=== PATIENT | female | born 1965 | race Caucasian/White ===

== ENCOUNTER 2019-10-08 22:29 | Inpatient (IN) | payer OTHER ==
[~2019-10-08] VITALS: Ht 154.9 cm; Wt 65.3 kg
--- NOTE | 2019-10-08 22:30 | NUR ---
PT BIBRA C/O FEVER AND SOB S/P COVID (+) EXPOSURE. PER RA, PT'S ROOMATE WAS TESTED POTISIVE LAST WEEK. UPON ARRIVAL PT SAT 76 ON ROOM AIR. PLACED ON 4L NC SAT 83%. RT AT BEDSIDE PLACED 15L NON REBREATHER ON THE PATIENT, SAT 88%. PT AAOX4.
--- NOTE | 2019-10-08 22:30 | NUR ---
PRESSURE ULACER ON L FOOT NOTED.
[2019-10-08 22:55] LABS: BASOPHILS # (AUTO) 0.1 /CMM (0.0-0.2); BASOPHILS % (AUTO) 0.5 % (0.0-2.0); EOSINOPHILS % (AUTO) 0.2 % (0.0-6.0); HEMATOCRIT 30 % (33-45); HEMOGLOBIN 9.3 g/dL (11.5-14.8); LYMPHOCYTES # (AUTO) 1.2 /CMM (0.8-4.8); LYMPHOCYTES % (AUTO) 11.6 % (20.0-44.0); MEAN CORPUSCULAR HGB CONC 31 g/dl (31.0-36.0); MEAN CORPUSCULAR VOLUME 88 fL (82-100); MONOCYTES # (AUTO) 0.6 /CMM (0.1-1.30); MONOCYTES % (AUTO) 5.4 % (2.0-12.0); NEUTROPHILS # (AUTO) 8.7 /CMM (1.8-8.9); NEUTROPHILS % (AUTO) 82.3 % (43.0-81.0); PLATELET COUNT (AUTO) 466 /CMM (150-450); RED BLOOD CELL COUNT(AUTO) 3.41 MIL/uL (4.0-5.2); WHITE BLOOD COUNT (AUTO) 10.5 K/uL (4.3-11.0)
--- NOTE | 2019-10-08 22:55 | NUR ---
RT AT BEDSIDE FOR ABG
[2019-10-08 22:59] LABS: ABG BASE EXCESS -3.1 mmol/L; ABG OXYGEN SATURATION 77.4 % (92.0-98.5); ABG PCO2 31.4 mmHg (35.0-45.0); ABG PH 7.433 (7.350-7.450); ABG PO2 43.2 mmHg (75.0-100.0); AaDO2 148.2 mmHg; COHb 0.9 % (0.5-1.5); MetHb 0.3 % (0.0-1.5); O2Hb 76.5 % (94.0-97.0); SITE, ABG Left Radial; VENT MODE, BG 3 LNC
[2019-10-08 23:04] LABS: CALCIUM, SERUM 8.4 mg/dL (8.5-10.1); CARBON DIOXIDE 25 mmol/L (21-32); CHLORIDE 100 mmol/L (98-107); CREATININE 0.7 mg/dL (0.6-1.3); GLUCOSE 162 mg/dL (74-106); POTASSIUM 4.1 mmol/L (3.5-5.1); SODIUM SERUM 136 mmol/L (136-145); UREA NITROGEN, BLOOD 13 mg/dL (7-18)
--- NOTE | 2019-10-08 23:10 | NUR ---
XRAY AT BEDSIDE
--- NOTE | 2019-10-08 23:10 | NUR ---
COVID AND INF SENT TO LAB
--- NOTE | 2019-10-08 23:11 | NUR ---
PT PLACED ON 15L NON ERIC SAT 84%
[2019-10-08 23:17] LABS: ALANINE AMINOTRANSFERASE 25 U/L (12-78); ALKALINE PHOSPHATASE 92 U/L (46-116); ASPARTATE AMINOTRANSFERASE 53 U/L (15-37); B-TYPE NATRIURETIC PEPTIDE 1538 PG/ML (0-125); BILIRUBIN,DIRECT 0.1 mg/dL (0.0-0.2); BILIRUBIN,TOTAL 0.4 mg/dL (0.2-1.0); TOTAL PROTEIN, SERUM 7.2 g/dL (6.4-8.2)
--- NOTE | 2019-10-08 23:22 | NUR ---
CALLED [facility], AWAITING MD CALL BACK
[2019-10-09] VITALS (23 sets, daily range): BP systolic 91–134; BP diastolic 50–82
--- NOTE | 2019-10-09 00:01 | NUR ---
FR flores catheter inserted per sterile protocal. Immediate output 50 ML of urine.
--- NOTE | 2019-10-09 00:07 | NUR ---
PER PT. UNABLE TO RECAL MEDS.
[2019-10-09] MEDS ORDERED: PROPOFOL 100 ML ONE (00:27)
--- NOTE | 2019-10-09 00:55 | NUR ---
PT INTUBATED PER MD. TV 500, FIO2 18, O2 100, PEEP 8
--- NOTE | 2019-10-09 00:57 | NUR ---
PT WAS SUCCESSFULLY INTUBATED AT THE BED SIDE BY DR. DONNELLY
--- NOTE | 2019-10-09 00:57 | NUR ---
SIZE:7.5. 23 AT THE LIP.
--- NOTE | 2019-10-09 01:15 | NUR ---
RT @0057 pt was intubated in ER due to desaturation post abg and placed on nrb. pt was orally intubated with ETT 7.5 secured at 23@lip. placed on vent with settings of AC 18 500 100% +8.
[2019-10-09 01:25] LABS: APPEARANCE,URINE Clear (CLEAR); BILIRUBIN,URINE SMALL (NEGATIVE); BLOOD, URINE Trace-intact Ery/uL (NEGATIVE); COLOR,URINE Orange (YELLOW); KETONES,URINE 40 (NEGATIVE); LEUKOCYTE ESTERASE ,URINE Negative (NEGATIVE); NITRITE, URINE Negative (NEGATIVE); PROTEIN,URINE 30 mg/dl (NEGATIVE); UGLUCOSE Negative (NEGATIVE)
[2019-10-09] MEDS ORDERED: VANCOMYCIN 1 GM VIAL ONE (01:29)
[2019-10-09] MEDS ORDERED: PIPERACILLIN /TAZOBACTAM 3.375 G VIAL IV ONE (01:29)
[2019-10-09] MEDS ORDERED: PIPERACILLIN /TAZOBACTAM 3.375 G in IV D5W 50 ML IV ONE (01:30)
[2019-10-09] MEDS ORDERED: ONDANSETRON HCL/PF 4 MG/2 ML VIAL IVP PRN (01:30)
[2019-10-09] MEDS ORDERED: ONDANSETRON 4 MG TAB.RAPDIS SL PRN (01:30)
[2019-10-09] MEDS ORDERED: IV NS 0.9% 1,000 ML BAG IV ONE (01:30)
[2019-10-09] MEDS ORDERED: VANCOMYCIN 1 GM in IV D5W 250 ML IV ONE (01:30)
[2019-10-09] MEDS ORDERED: ACETAMINOPHEN 325 MG TABLET PO PRN (01:30)
[2019-10-09 01:36] LABS: BACTERIA,URINE Few /HPF (None Seen); SQUAMOUS EPITHELIAL CELL,UR Few /HPF (None Seen)
[2019-10-09] MEDS ORDERED: MIDAZOLAM 50 MG/10 ML VIAL ONE (01:51)
[2019-10-09] MEDS ORDERED: MIDAZOLAM HCL 5 MG/5ML VIAL ONE (01:51)
--- NOTE | 2019-10-09 01:56 | NUR ---
RT @0140 pt was reintubated post self extubation. ett 7.5, 23@lip. same vent settings.
[2019-10-09] MEDS ORDERED: ALBUTEROL SULFATE 8 GM HFA.AER.AD IH PRN (02:00)
--- NOTE | 2019-10-09 02:42 | NUR ---
REPORT GIVEN TO DARIUSZ STEPHENS FOR ISAIAS
[2019-10-09 03:04] LABS: ABG BASE EXCESS -4.4 mmol/L; ABG OXYGEN SATURATION 99.5 % (92.0-98.5); ABG PCO2 24.6 mmHg (35.0-45.0); ABG PH 7.483 (7.350-7.450); ABG PO2 349.4 mmHg (75.0-100.0); COHb 0.6 % (0.5-1.5); MetHb 0.2 % (0.0-1.5); O2Hb 98.7 % (94.0-97.0); SITE, ABG Left Radial; VENT MODE, BG AC 18 500 100% +8
[2019-10-09] MEDS: PROPOFOL 100 ML IV PRN ×5 (03:15→19:36)
--- NOTE | 2019-10-09 03:15 | NUR ---
RT pull ett back 3 cm to 20cm @lip per (everardo)
--- NOTE | 2019-10-09 03:26 | NUR ---
PT TRANSFERED PER ACLS PROTOCOL
[2019-10-09] MEDS ORDERED: MIDAZOLAM HCL 5 MG/5ML VIAL IV ONE (03:30)
--- NOTE | 2019-10-09 03:30 | NUR ---
COMPUTER SECURITY COORDINATOR: RECEIVED PT S/P INTUBATION FOR RESPIRATORY FAILURE AND R/O COVID. VENT SETTINGS ORDERED WT 02 SAT 96% AND ABOVE. SEDATED ON DIPRIVAN AT 30MCG/KG/MIN, OEPNS EYES AND WITHDRAWS TO PAIN STIMULI. SR ON MONITOR. FEBRILE AT 101.5. COLD BED BATH GIVEN AND CONTINUE COOLING MEASURES. BILAT. SOFT WRIST RESTRAINTS IN PLACE TO PREVENT SELF EXTUBATION. SKIN AND CIRCULATION WNL. RT. NGT IN PLACE. F/C PATENT AND INTACT DRAINING CLEAR YELLOW URINE TO GRAVITY. SKIN ASSESSMENT DONE WT MULT. SKIN ISSUES. PICS TAKEN. HOB AT 35 DEGREES. BED IN LOWEST POSITION AND LOCKED, SIDE RAILS UP X2, BED ALARM ACTIVATED. WILL CONTINUE TO MONITOR.
[2019-10-09] MEDS: ACETAMINOPHEN 650 MG/SUPP.RECT RC PRN ×2 (04:24→16:25)
--- NOTE | 2019-10-09 05:30 | NUR ---
PROJECT MANAGEMENT DIRECTOR: REASSESSMENT DONE AFTER GIVEN TYLENOL FOR FEVER. JZPX=[phone] AT THIS TIME. WILL CONTINUE TO MONITOR.
[2019-10-09 05:31] LABS: FERRITIN 131 ng/mL (8-388)
[2019-10-09 05:32] LABS: C-REACTIVE PROTEIN 59.7 mg/dL (0.0-0.9)
--- NOTE | 2019-10-09 07:00 | NUR ---
RAMPMAN: PT PULLED OUT NGT, RESTLESS AND TRYING TO PULL OTHER TUBINGS. DIPRIVAN INCREASED TO 40MCG/KG/MIN AND INCREASED FI02 TO 100% FOR DESATURATION. WILL ENDORSE TO DAY SHIFT FOR CONTINUITY OF CARE.
--- NOTE | 2019-10-09 07:27 | NUR ---
FIO2 incresed to 100% due to 88% saturation RN aware on vent changes Addendum: 10/09/19 at 0727 by SCAR OGDEN RT Amended: Links added.
[2019-10-09 07:47] LABS: BASOPHILS % (AUTO) 0.4 % (0.0-2.0); EOSINOPHILS % (AUTO) 0.1 % (0.0-6.0); HEMATOCRIT 29 % (33-45); HEMOGLOBIN 8.8 g/dL (11.5-14.8); LYMPHOCYTES % (AUTO) 8.8 % (20.0-44.0); MEAN CORPUSCULAR HGB CONC 31 g/dl (31.0-36.0); MEAN CORPUSCULAR VOLUME 88 fL (82-100); MONOCYTES # (AUTO) 0.5 /CMM (0.1-1.30); MONOCYTES % (AUTO) 4.5 % (2.0-12.0); NEUTROPHILS # (AUTO) 9.5 /CMM (1.8-8.9); NEUTROPHILS % (AUTO) 86.2 % (43.0-81.0); PLATELET COUNT (AUTO) 453 /CMM (150-450); RED BLOOD CELL COUNT(AUTO) 3.25 MIL/uL (4.0-5.2)
[2019-10-09] MEDS ORDERED: FEE EMEERGENCY 1 MIN EA MC ONE (08:29)
[2019-10-09] MEDS ORDERED: ETOMIDATE 2 MG/ML VIAL IV ONE (08:29)
[2019-10-09] MEDS ORDERED: SUCCINYLCHOLINE CHLORIDE 20 MG/ML VIAL IV ONE (08:29)
[2019-10-09] MEDS: IV NS 0.9% 1,000 ML IV PRN ×3 (08:31→18:33)
[2019-10-09] MEDS: PANTOPRAZOLE 40 MG VIAL IV SCH (08:59)
[2019-10-09] MEDS ORDERED: AZITHROMYCIN 500 MG in IV D5W 250 ML IV SCH (09:00)
--- NOTE | 2019-10-09 09:20 | NUR ---
WOUND CARE CONSULT: REVIEWED CHART INCLUDING NURSING DOCUMENTATION AND ADMISSION PHOTOS WHICH SHOW FOOT WOUNDS AND SACRAL SCARRING, PRESENT ON ADMISSION. RECOMMENDATIONS MADE FOR SKIN PROTECTION. DISCUSSED WITH NURSING STAFF. PT ON JOLIE ISOFLEX LOW AIRLOSS BED. RECOMMEND DPM CONSULT. DR REESE NOTIFIED. IN AGREEMENT WITH PLAN OF CARE.
[2019-10-09 09:23] LABS: ABG BASE EXCESS -5.4 mmol/L; ABG OXYGEN SATURATION 99.7 % (92.0-98.5); ABG PCO2 23.8 mmHg (35.0-45.0); ABG PH 7.471 (7.350-7.450); ABG PO2 284.2 mmHg (75.0-100.0); COHb 0.6 % (0.5-1.5); MetHb 0.3 % (0.0-1.5); O2Hb 98.8 % (94.0-97.0); SITE, ABG Right Radial; VENT MODE, BG AC 14 500 100% +8
--- NOTE | 2019-10-09 09:38 | NUR ---
ET TUBE ADJUSTED FROM 20CM TO 18CM Addendum: 10/09/19 at 0938 by SCAR OGDEN RT Amended: Links added.
[2019-10-09 09:42] LABS: CALCIUM, SERUM 7.9 mg/dL (8.5-10.1); CARBON DIOXIDE 18 mmol/L (21-32); CHLORIDE 102 mmol/L (98-107); CREATININE 0.5 mg/dL (0.6-1.3); GLUCOSE 200 mg/dL (74-106); POTASSIUM 4.3 mmol/L (3.5-5.1); SODIUM SERUM 137 mmol/L (136-145); UREA NITROGEN, BLOOD 11 mg/dL (7-18)
[2019-10-09 09:48] LABS: ALANINE AMINOTRANSFERASE 26 U/L (12-78); ALBUMIN 2.1 g/dL (3.4-5.0); ALKALINE PHOSPHATASE 97 U/L (46-116); ASPARTATE AMINOTRANSFERASE 68 U/L (15-37); BILIRUBIN,TOTAL 0.6 mg/dL (0.2-1.0); MAGNESIUM 1.9 mg/dL (1.8-2.4); PHOSPHORUS 2.6 mg/dL (2.5-4.9); TOTAL PROTEIN, SERUM 6.1 g/dL (6.4-8.2)
--- NOTE | 2019-10-09 10:01 | NUR ---
vent changes below per dr. casey: vt 450ml fio2 60% Addendum: 10/09/19 at 1001 by CHRISTIAN YAÑEZ RT Amended: Links added.
[2019-10-09] MEDS ORDERED: WARF-58 PO (10:06)
[2019-10-09] MEDS ORDERED: GABA-534 PO (10:06)
[2019-10-09] MEDS ORDERED: OMEP20CA15 PO (10:06)
[2019-10-09] MEDS ORDERED: OXYC1TAB12 PO (10:06)
[2019-10-09] MEDS ORDERED: DULO30CA52 PO (10:06)
[2019-10-09] MEDS ORDERED: METF-440 PO (10:06)
[2019-10-09 10:19] LABS: CHOLESTEROL 98 mg/dL (<200); FERRITIN 167 ng/mL (8-388); HDL CHOLESTEROL 31 mg/dL (40-60); LDL 46 mg/dL (0-99); THYROID STIMULATING HORMONE 0.902 uIU/mL (0.358-3.74); TRIGLYCERIDES 136 mg/dL (30-150)
[2019-10-09] MEDS: HYDROXYCHLOROQUINE 200 MG/8 ML SUSPENSION NG SCH ×2 (10:44→20:19)
--- NOTE | 2019-10-09 10:49 | NUR ---
SKIVER SOCK LININGS. ACCORDING TO THE MD DAVIES ETT 2CM PULLED OUT NOW LIP 18.
--- NOTE | 2019-10-09 10:51 | NUR ---
CANDY POLISHER.SISTER VICTORIA CALLED UP DATE GIVEN. ACCORDING TO THE SISTER ,SHE IS CHARMAINE COWART PT.PT HAS HISTORY OF DM.
--- NOTE | 2019-10-09 10:54 | NUR ---
OGT PLACED. WOUND DRESSING DONE. VENT SETTINGS AC 14,TV 450,FIO2 70%.PEEP OF 8. SAT 99% AT THIS TIME. PT IS SEDATED WITH DIPRIVAN 40MCG/KG/MIN, IVF NS 125ML/H. AFEBRILE. SOPHIE SOFT WRIST RESTRAINT CHECKED AND RELEASED. NO INJURY OR REDNESS NOTED.ENDORSE TO COOK HELPER VEGETABLE GIL FOR ISAIAS.
--- NOTE | 2019-10-09 12:00 | NUR ---
REPORT RECEIVED FROM JOSE LUIS CONTRERAS RN FOR ISAIAS. PT SEDATED RASS LEVEL 4 CURRENTLY, ON 50MCG PROPOFOL. NAD NOTED. TURNED AND REPOSITIONED FOR COMFORT. TOLERATING VENT AT ORDERED SETTINGS. IVF ONGOING.
[2019-10-09 12:41] LABS: IRON, SERUM 24 ug/dl (50-175)
[2019-10-09 12:53] LABS: TOTAL IRON BINDING CAPACITY 517 ug/dl (250-450)
--- NOTE | 2019-10-09 14:56 | NUR ---
DIPRIVAN DRIP RUINNING AT 50MCG/KR/MIN, INADEQUATE SEDATION, RASS SCORE 4. PT MOVING SPONTANEOUSLY IN RESTRAINTS, APPEARS UNCOMFORTABLE. OBTAINED VERBAL ORDER FROM DR DAVIES TO INCREASE DRIP NEEDED UP TO MAX 100MCG/KG/MIN.
--- NOTE | 2019-10-09 16:00 | NUR ---
PT NOTED FEBRILE. WILL ADMINISTER TYLENOL AND PT UNCOVERED FROM BLANKETS. TOLERATING VENT. SEDATION NOW RASS 3, ADEQUATELY SEDATED.
--- NOTE | 2019-10-09 17:45 | NUR ---
PT REMAINS 102.2F RECTAL, ICE PACKS APPLIED TO GROIN AND NECK.
[2019-10-09] MEDS ORDERED: CEFEPIME 1 GM in IV D5W 50 ML IV SCH (19:30)
[2019-10-09] MEDS ORDERED: FEE PK DOSING 1 MIN EA MC ONE (19:49)
--- NOTE | 2019-10-09 19:50 | NUR ---
RN CORRECTIONS NOTES, RECEIVED PT ON MECHANICAL VENTILATOR, TOLERATED VENT SETTINGS WELL WITH O2 SAT LEVEL >96% ON DIPRIVAN AT 60MCG/KG/MIN, PATIENT MOVE ARMS AT TIMES, MILD SEDATION, SR ON MONITOR WITH HR 90S AT THIS TIME, BODY TEMP 100.3, WILL PROVIDE COOLING MEASURES, ON BILATERAL SOFT WRIST RESTRAINTS IN PLACE, SKIN AND CIRCULATION WNL, NO CIRCULATION COMPROMISED, RIGHT NGT IN PLACE WELL F/C PATENCY INTACT, DRAINING CLEAR YELLOW URINE TO GRAVITY, HOB ELEVATED, BED LOCKED AND IN LOW POSITION, SIDE RAILS UP X2, BED ALARM ON, WILL CONTINUE TO MONITOR PATIENT CLOSELY.
[2019-10-09] MEDS ORDERED: AZITHROMYCIN 250 MG TABLET PO SCH (20:00)
[2019-10-09] MEDS: CEFEPIME 2 GM in IV D5W 100 ML IV SCH (20:54)
[2019-10-09] MEDS: VANCOMYCIN 1 GM in IV D5W 250 ML IV SCH (21:29)
[2019-10-10] VITALS (25 sets, daily range): BP systolic 97–145; BP diastolic 27–82
[2019-10-10] MEDS: ACETAMINOPHEN 650 MG/SUPP.RECT RC PRN
[2019-10-10] MEDS: PROPOFOL 100 ML IV PRN ×8 (00:10→23:39)
--- NOTE | 2019-10-10 01:38 | NUR ---
RT NOTE Pt rec'd orally intubated via ETT sz 7.5 secured @ 18cm at the lipline. Pt on [facility] vent on AC mode on noted settings as charted. Sx'd for thick mod amt of bloody secretions. Alarms are set and audible. Vent plugged into red outlet. Will Continue to monitor closely. Addendum: 10/10/19 at 0139 by JACQUE BAER RT Amended: Links added.
[2019-10-10] MEDS: VANCOMYCIN 1 GM in IV D5W 250 ML IV SCH ×3 (04:22→21:00)
[2019-10-10 05:28] LABS: BASOPHILS % (AUTO) 0.2 % (0.0-2.0); EOSINOPHILS % (AUTO) 0.6 % (0.0-6.0); HEMATOCRIT 26 % (33-45); HEMOGLOBIN 8.4 g/dL (11.5-14.8); LYMPHOCYTES % (AUTO) 13.4 % (20.0-44.0); MEAN CORPUSCULAR HGB CONC 33 g/dl (31.0-36.0); MEAN CORPUSCULAR VOLUME 88 fL (82-100); MONOCYTES # (AUTO) 0.5 /CMM (0.1-1.30); MONOCYTES % (AUTO) 6.9 % (2.0-12.0); NEUTROPHILS % (AUTO) 78.9 % (43.0-81.0); PLATELET COUNT (AUTO) 244 /CMM (150-450); RED BLOOD CELL COUNT(AUTO) 2.95 MIL/uL (4.0-5.2); WHITE BLOOD COUNT (AUTO) 7.6 K/uL (4.3-11.0)
[2019-10-10] MEDS: IV NS 0.9% 1,000 ML IV PRN (05:46)
[2019-10-10 05:47] LABS: FERRITIN 112 ng/mL (8-388)
[2019-10-10 05:59] LABS: ALANINE AMINOTRANSFERASE 19 U/L (12-78); ALBUMIN 1.6 g/dL (3.4-5.0); ALKALINE PHOSPHATASE 94 U/L (46-116); ASPARTATE AMINOTRANSFERASE 47 U/L (15-37); BILIRUBIN,TOTAL 0.4 mg/dL (0.2-1.0); CALCIUM, SERUM 7.7 mg/dL (8.5-10.1); CARBON DIOXIDE 21 mmol/L (21-32); CREATININE 0.5 mg/dL (0.6-1.3); GLUCOSE 191 mg/dL (74-106); MAGNESIUM 1.8 mg/dL (1.8-2.4); PHOSPHORUS 2.1 mg/dL (2.5-4.9); TOTAL PROTEIN, SERUM 6.2 g/dL (6.4-8.2); UREA NITROGEN, BLOOD 6 mg/dL (7-18)
[2019-10-10 06:02] LABS: CHLORIDE 112 mmol/L (98-107); SODIUM SERUM 144 mmol/L (136-145)
[2019-10-10 06:15] LABS: POTASSIUM 2.8 mmol/L (3.5-5.1)
--- NOTE | 2019-10-10 06:26 | NUR ---
RN NOTES, CRITICAL LAB REPORTED FROM LAB FOR POTASSIUM 2.8, INFORMED CONSTANCE JACKMAN NP AND RECEIVED A NEW ORDER FOR NS 40MEQ POTASSIUM AT 100ML/HR, NOTED AND CARRIED OUT.
--- NOTE | 2019-10-10 06:57 | NUR ---
ROPE MACHINE SETTER NOTES, PATIENT REMAIN ON MECHANICAL VENTILATOR, WITH VENT SETTING CHANGED TO FIO2 50%, CONT WITH AC 14, TV450, PEEP 8, TOLERATED VENT SETTINGS WELL WITH O2 SAT LEVEL >100% AT THIS ITME, EPISODE OF FEVER LAST NIGHT, TYLENOL SUPP AND COOLING MEASURES PROVIDED, DIPRIVAN INCREASED TO 70MCG/KG/MIN, DUE TO PATIENT AGITATED, RIGHT NOW CONT SR ON MONITOR WITH HR 90S, BILATERAL SOFT WRIST RESTRAINTS IN PLACE, SKIN AND CIRCULATION CHECKS PROTOCOL, NO CIRCULATION COMPROMISED, RIGHT NGT IN PLACE WELL F/C PATENCY INTACT, DRAINING CLEAR YELLOW URINE TO GRAVITY, HOB ELEVATED, WITH CRITICAL LAB VALUE FOR POTASSIUM 2.8 AND NEW ORDER TO SWITCH IVF TO NS WITH 40MEQ KCL AT 100ML/HR, ORDER NOTED CARRIED OUT AND AWAITING FOR PHARMACY TO VERIFY, WILL ENDORSE CONTINUITY OF CARE TO ONCOMING NURSE, BED LOCKED AND IN LOW POSITION, SIDE RAILS UP X2, BED ALARM ON.
[2019-10-10] MEDS ORDERED: Potassium Chloride 40 MEQ in IV NS 0.9% 1,000 ML IV PRN (07:00)
--- NOTE | 2019-10-10 07:40 | NUR ---
DIRECTOR OF MATH OPENING NOTE Received patient sedated in bed intubated with no signs of distress. Vent settings as follows AC 14 TV 450 fiO2 50% Peep 8. Tele reading ST 110 bpm. Patient on FC draining cloudy to clear yellow urine. Noted with L foot dressing. Patient has clamped R nare NG tube. Has L hand and LAC peripheral IV. Skin cool to touch. Cooling measures in place due to previous fever. peripheral IV. Safety measure reinforced. Call light within reach. Bed rails x2. Bed on locked and lowest position. Will cont to monitor.
[2019-10-10 07:55] LABS: ABG PCO2 27.6 mmHg (35.0-45.0); ABG PH 7.457 (7.350-7.450); AaDO2 256.5 mmHg; MetHb 0.3 % (0.0-1.5); O2Hb 92.8 % (94.0-97.0); PEEP,BG 8 cm H2O; SITE, ABG Right Radial; VT, ABG 450 mL
[2019-10-10] MEDS ORDERED: POTASSIUM PHOSPHATE MM 15 MMOL in IV NS 0.9% 250 ML IV SCH (08:00)
[2019-10-10] MEDS: PANTOPRAZOLE 40 MG VIAL IV SCH (08:19)
[2019-10-10] MEDS: POTASSIUM CL. PREMIX PERIPHER. 50 ML IV SCH ×10 (08:20→16:42)
[2019-10-10] MEDS: CEFEPIME 2 GM in IV D5W 100 ML IV SCH ×2 (08:20→21:33)
[2019-10-10] MEDS: HYDROXYCHLOROQUINE 200 MG/8 ML SUSPENSION NG SCH ×2 (08:21→21:33)
--- NOTE | 2019-10-10 08:31 | NUR ---
DELI/BAKERY ASSOCIATE NOTE Informed Dr. Howard of patient's recent ABG awaiting orders.
--- NOTE | 2019-10-10 08:41 | NUR ---
vent changes below per dr. Howard: KARLO 10 FIO2 65% Addendum: 10/10/19 at 0842 by CHRISTIAN YAÑEZ RT Amended: Links added.
[2019-10-10] MEDS: POTASSIUM PHOSPHATE MM 7.5 MMOL in IV NS 0.9% 100 ML IV SCH ×2 (09:56→11:48)
--- NOTE | 2019-10-10 10:00 | NUR ---
MARKER SHIPMENTS NOTE Received call from Brandi (sister) gave update reg patient.
[2019-10-10 10:11] LABS: *SPE A/G RATIO 0.5 (0.7-1.7); *SPE ALBUMIN 2.1 g/dL (2.9-4.4); *SPE ALPHA-1-GLOBULIN 0.5 g/dL (0.0-0.4); *SPE ALPHA-2-GLOBULIN 1.5 g/dL (0.4-1.0); *SPE BETA GLOBULIN 1.1 g/dL (0.7-1.3); *SPE GLOBULIN, TOTAL 4.1 g/dL (2.2-3.9); *SPE M-SPIKE Not Observed g/dL (Not Observed)
--- NOTE | 2019-10-10 10:30 | NUR ---
REROLLING MACHINE OPERATOR NOTE Seen and examined by Dr. Turner gave orders for GT feeding. Input order for dietary consult.
--- NOTE | 2019-10-10 19:22 | NUR ---
STANDPIPE TENDER CLOSING NOTE Patient sedated in bed intubated with no signs of distress. Vent settings as follows AC 14 TV 450 fiO2 65% Peep 8. Tele reading ST 110 bpm. Patient on FC draining cloudy to clear yellow urine. Patient has clamped R nare NG tube. Ordered FNS/ Dietary Consult. Has R Femoral PICC line running Propofol 80mcg, K Chloride 50ml/hr, L hand and LAC peripheral IV. All due meds given, kept clean and dry. Vital signs within normal limits. No signs of pain or discomfort. Cont o antibiotic therapy no signs of adverse reaction to medications. Safety measure reinforced. Bed rails x2. Bed on locked and lowest position. Will endorse to carbide grinder nurse for flako.
--- NOTE | 2019-10-10 19:50 | NUR ---
RT pt beginning to form pressure ulcer on left side of lip. noticed upon movement of ett. jennifer moreau, aware
[2019-10-10] MEDS ORDERED: diphenhydrAMINE HCL 50 MG/ML VIAL IV ONE (21:00)
[2019-10-10] MEDS ORDERED: ACETAMINOPHEN 650 MG/20.3 ML UDC PEG ONE (21:00)
[2019-10-10] MEDS: methylPREDNISolone SOD SUCC 40 MG/ML VIAL IV SCH (21:29)
[2019-10-10] MEDS: AZITHROMYCIN 250 MG TABLET PO SCH (21:35)
[2019-10-10] MEDS ORDERED: TOCILIZUMAB 400 MG in IV NS 0.9% 80 ML IV ONE (22:00)
[2019-10-10] MEDS: VANCOMYCIN HCL 0.75 GM in IV D5W 250 ML IV SCH (23:48)
[2019-10-11] VITALS (24 sets, daily range): BP systolic 93–125; BP diastolic 56–78
[2019-10-11] MEDS: IV NS 0.9% 1,000 ML IV PRN ×2 (02:39→13:04)
[2019-10-11] MEDS: PROPOFOL 100 ML IV PRN ×8 (02:57→23:00)
[2019-10-11] MEDS: ACETAMINOPHEN 650 MG/20.3 ML UDC GT PRN ×4 (03:37→23:28)
[2019-10-11 05:03] LABS: BASOPHILS % (AUTO) 0.1 % (0.0-2.0); HEMATOCRIT 24 % (33-45); HEMOGLOBIN 7.5 g/dL (11.5-14.8); LYMPHOCYTES # (AUTO) 0.3 /CMM (0.8-4.8); LYMPHOCYTES % (AUTO) 4.7 % (20.0-44.0); MEAN CORPUSCULAR HGB CONC 31 g/dl (31.0-36.0); MEAN CORPUSCULAR VOLUME 88 fL (82-100); MONOCYTES # (AUTO) 0.2 /CMM (0.1-1.30); MONOCYTES % (AUTO) 2.4 % (2.0-12.0); NEUTROPHILS # (AUTO) 6.9 /CMM (1.8-8.9); NEUTROPHILS % (AUTO) 92.8 % (43.0-81.0); PLATELET COUNT (AUTO) 140 /CMM (150-450); RED BLOOD CELL COUNT(AUTO) 2.69 MIL/uL (4.0-5.2); WHITE BLOOD COUNT (AUTO) 7.5 K/uL (4.3-11.0)
[2019-10-11 05:17] LABS: CALCIUM, SERUM 7.7 mg/dL (8.5-10.1); CREATININE 0.6 mg/dL (0.6-1.3); POTASSIUM 3.5 mmol/L (3.5-5.1)
[2019-10-11 06:03] LABS: C-REACTIVE PROTEIN 38.1 mg/dL (0.0-0.9)
[2019-10-11] MEDS: VANCOMYCIN HCL 0.75 GM in IV D5W 250 ML IV SCH ×4 (07:00→23:00)
--- NOTE | 2019-10-11 07:07 | NUR ---
VANCO TROUGH 21 (10/10/2019), PER RX, HOLD 0700 VANCO DOSE. Addendum: 10/11/19 at 0730 by SCOTT LICONA RN PER RX, ADMINISTER VANCO DOSE, AWAITING MED ARRIVAL
--- NOTE | 2019-10-11 07:30 | NUR ---
RN OPENING NOTE: RECEIVED PATIENT IN BED THIS MORNING. PATIENT IS INTUBATED, TOLERATING VENT SETTINGS WELL, NO SIGNS OF RESPIRATORY DISTRESS NOTED. NO SIGNS OF ACUTE DISTRESS NOTED. PATIENT HAS TAN, DRAINING CLOUDY YELLOW URINE. PATIENT IS ON TELE MONITOR, SR 92. PICC LINE RIGHT FEMORAL, #20 LAC, #20 L WRIST, C/D/I, FLUSHING WELL, NO SIGNS OF COMPLICATIONS NOTED. PATIENT IS RUNNING PROPOFOL AT THIS TIME. PATIENT HAS RIGHT NGT, CLAMPED. PATIENT IS CURRENTLY AFEBRILE, WILL CONTINUE TO MONITOR TEMPERATURE. WOUND ON LEFT FOOT, WOUND CARE PER ORDERS. BUE SOFT WRIST RESTRAINTS IN PLACE, CONTINUE TO ASSESS PATIENT PER PROTOCOL. SAFETY MEASURES IMPLEMENTED, BED IN LOWEST POSITION, LOCKED, SIDE RAILS UP X2, CALL LIGHT WITHIN REACH. WILL CONTINUE TO MONITOR PATIENT FOR CHANGES.
[2019-10-11] MEDS: methylPREDNISolone SOD SUCC 40 MG/ML VIAL IV SCH ×2 (08:09→12:25)
[2019-10-11] MEDS: PANTOPRAZOLE 40 MG VIAL IV SCH (08:09)
[2019-10-11] MEDS: CEFEPIME 2 GM in IV D5W 100 ML IV SCH ×2 (08:11→20:23)
[2019-10-11] MEDS: HYDROXYCHLOROQUINE 200 MG/8 ML SUSPENSION NG SCH ×2 (08:11→20:23)
[2019-10-11 08:56] LABS: ABG BASE EXCESS -7.9 mmol/L; ABG OXYGEN SATURATION 96.1 % (92.0-98.5); ABG PCO2 26.9 mmHg (35.0-45.0); ABG PH 7.387 (7.350-7.450); ABG PO2 85.8 mmHg (75.0-100.0); AaDO2 348.4 mmHg; COHb 0.9 % (0.5-1.5); MetHb 0.1 % (0.0-1.5); O2Hb 95.1 % (94.0-97.0); PEEP,BG 8 cm H2O; SITE, ABG Right Radial; VT, ABG 450 mL
[2019-10-11] MEDS ORDERED: POTASSIUM CHLORIDE 20 MEQ TAB.PRT.SR PO SCH (09:00)
[2019-10-11] MEDS ORDERED: DEXTROSE 50%-WATER 50 ML DISP.SYRIN IV PRN (12:00)
[2019-10-11] MEDS: BLOOD SUGAR DIAGNOSTIC 1 EACH STRIP IN SCH ×3 (12:00→23:53)
[2019-10-11] MEDS: INSULIN REGULAR, HUMAN 100 UNIT/ML 3 ML VIAL SQ PRN ×3 (13:37→23:55)
[2019-10-11] MEDS: GLUCERNA 1.2 1,000 ML BOTTLE NG PRN (14:25)
--- NOTE | 2019-10-11 19:14 | NUR ---
RN CLOSING NOTE: PATIENT REMAINS IN BED. TOLERATING VENT SETTINGS WELL, NO SIGNS OF RESPIRATORY DISTRESS NOTED. NO SIGNS OF ACUTE DISTRESS NOTED. PATIENT IS ON TELE MONITOR, SR 80S. PATIENT IS RUNNING PROPOFOL AT THIS TIME. BUE SOFT WRIST RESTRAINTS IN PLACE, CONTINUE TO ASSESS PATIENT PER PROTOCOL. SAFETY MEASURES IMPLEMENTED, BED IN LOWEST POSITION, LOCKED, SIDE RAILS UP X2, CALL LIGHT WITHIN REACH. ENDORSED TO KAT HUTCHINSON FOR CONTINUITY OF CARE.
--- NOTE | 2019-10-11 19:36 | NUR ---
RN OPENING NOTES: Received pt in bed sedated. On isolation for positive Covid. On mechanical ventilation, tolerating settings well. No respiratory distress noted. On tele monitor showing SR. Right NGT in place w/ Glucerna running at 30cc/hr with goal of 40cc/hr. Will increase as tolerated. Has R femoral triple lumen, LAC #20, and L wrist #20. Lines patent and flushing. Dressings c/d/i. Has Diprivan running at 100cc/hr. NS running at 40cc/hr. On BUE soft wrist restraints. Has flores in place, patent and draining cloudy yellow urine. Safety measures in place. Will continue to monitor.
[2019-10-11] MEDS: AZITHROMYCIN 250 MG TABLET PO SCH (20:23)
[2019-10-12] VITALS (26 sets, daily range): BP systolic 73–114; BP diastolic 48–74
--- NOTE | 2019-10-12 00:03 | NUR ---
RN NOTE: Pt noted w/ temp of 100.4. Tylenol PRN given as ordered, cooling measures in place. Vanco trough back at 28. 2300 dose of Vanco held per order. Addendum: 10/12/19 at 0633 by EVANGELINA FARRELL RN Rx called, stated pharmacy will reevaluate dose for AM vanco.
[2019-10-12] MEDS: PROPOFOL 100 ML IV PRN ×8 (01:28→23:32)
[2019-10-12] MEDS: BLOOD SUGAR DIAGNOSTIC 1 EACH STRIP IN SCH ×3 (05:58→17:42)
[2019-10-12] MEDS: INSULIN REGULAR, HUMAN 100 UNIT/ML 3 ML VIAL SQ PRN ×3 (05:59→18:06)
[2019-10-12 06:04] LABS: CALCIUM, SERUM 7.7 mg/dL (8.5-10.1); CREATININE 0.6 mg/dL (0.6-1.3); POTASSIUM 2.9 mmol/L (3.5-5.1)
--- NOTE | 2019-10-12 07:02 | NUR ---
RN CLOSING NOTES: Pt in bed sedated. On isolation for positive Covid. Pt is intubated, tolerating well. No respiratory distress noted. No acute changes noted during shift. Increased tube feeding to goal of 40cc/hr. Pt tolerating well. Minimal residuals noted. On Diprivan, titrated down to 90cc/hr. Tolerating well, still sedated. All medications administered as ordered. Safety measures in place. Will endorse to AM nurse for ISAIAS.
--- NOTE | 2019-10-12 07:30 | NUR ---
RN AM NOTES: RECEIVED PATIENT IN BED, SEDATED, WITH ETT 6.5/21CM TO MECHANICAL VENT SETTINGS ORDERED, TOLERATING WELL, RIGHT NGT TO RIGHT NARES WITH GLUCERNA RUNNING AT 40 ML/HR, 0 RESIDUAL, SINUS TACH HR 111, NO SIGNS OF PAIN, LAC G 20 AND LEFT WRIST G20 IV ACCESS, FLUSHES WELL SITE CLEAR. RIGHT FEMORAL TRIPLE LUMEN IN PLACE WITH IVF RUNNING AT 40 ML/HR. DIPRIVAN RUNNING AT 90 MCG/HR, TAN CATH IN PLACE DRAINING YELLOW COLORED URINE TO GRAVITY, ADEQUATE AMOUNT, BUE WITH SOFT RESTRAINT, RELEASED AND CHECKED FOR CIRCULATION AND PULSE, THEN EVERY 2 HOURS. WILL TURN AND REPOSITION Q [address] MEASURES IN PLACE, CALL LIGHT WITHIN REACH, WILL MONITOR CLOSELY.
[2019-10-12] MEDS: IV NS 0.9% 1,000 ML IV PRN (07:56)
[2019-10-12] MEDS ORDERED: POTASSIUM CHLORIDE 20 MEQ POWDER PACKET GT ONE (08:00)
[2019-10-12] MEDS: HYDROXYCHLOROQUINE 200 MG/8 ML SUSPENSION NG SCH ×2 (08:12→20:11)
[2019-10-12] MEDS: ACETAMINOPHEN 650 MG/SUPP.RECT RC PRN (08:12)
[2019-10-12] MEDS: PANTOPRAZOLE 40 MG VIAL IV SCH (08:12)
[2019-10-12] MEDS: CEFEPIME 2 GM in IV D5W 100 ML IV SCH (08:20)
[2019-10-12 08:21] LABS: ABG BASE EXCESS -4.4 mmol/L; ABG OXYGEN SATURATION 98.6 % (92.0-98.5); ABG PCO2 25.1 mmHg (35.0-45.0); ABG PH 7.481 (7.350-7.450); ABG PO2 113.7 mmHg (75.0-100.0); AaDO2 322.5 mmHg; COHb 1.1 % (0.5-1.5); MetHb 0.3 % (0.0-1.5); O2Hb 97.2 % (94.0-97.0); PEEP,BG 10 cm H2O; SITE, ABG Right Brachial; VT, ABG 450 mL
[2019-10-12] MEDS ORDERED: methylPREDNISolone SOD SUCC 40 MG/ML VIAL IV SCH (09:00)
[2019-10-12] MEDS ORDERED: POTASSIUM CHLORIDE 20 MEQ POWDER PACKET GT SCH (09:00)
--- NOTE | 2019-10-12 09:59 | NUR ---
RN NOTES PER DR. ANTHONY, NOT TO GIVE 2ND 60 MEQ POTASSIUM POWDER. MD AWARE, PT IS FEBRILE AT 101.2
[2019-10-12] MEDS: VANCOMYCIN HCL 0.75 GM in IV D5W 250 ML IV SCH ×2 (11:53→23:00)
--- NOTE | 2019-10-12 12:36 | NUR ---
RN NOTES ACCUCHECK BS 338 MG/SL, 16 UNITS HUM R GIVEN PER SS.
--- NOTE | 2019-10-12 13:00 | NUR ---
ER CALLED TO REPLACE KINKED ET-TUBE. RT UNABLE TO ADVANCE ET TUBE OR PASS SUCTION CATHETER. ER UNABLE TO ADVANCE ET-TUBE CHANGER (ANJALI). ET TUBE REPLACED BY MD WITH 6.5 TUBE SECURED AT 19CM. Addendum: 10/12/19 at 1426 by SHANNA SYED RT Amended: Links added.
[2019-10-12] MEDS ORDERED: EPINEPHRINE (1:10,000) SYRINGE 1 MG/10 ML DISP.SYRIN IVP ONE (13:56)
[2019-10-12] MEDS ORDERED: PHENYLEPHRINE 100 MG in IV NS 0.9% 240 ML IV PRN (14:00)
[2019-10-12] MEDS ORDERED: PHENYLEPHRINE 50 MG in IV NS 0.9% 245 ML IV PRN (14:30)
--- NOTE | 2019-10-12 14:45 | NUR ---
RN NOTES CODE BLUE CALLED BUT WAS CANCELLED. NO BAGGING NO ANY MEDICATION GIVEN DURING THE PROCEDURE. WHILE SHANNA RT ADJUSTING ETT PER DR. LUU'S ORDER , FOUND TO BE KINKED, UNABLE TO ADVANCE, UNABLE TO PASS SUCTION CATH AND BOUGIE. - CHRISTINA CROWE CALLED IN AND REINTUBATED PATIENT WITH ETT 6.5/ 21CM. PRESENT WERE, YUNIOR VALADEZ, SHANNA, ABELINO ORTIZ, RN, EVANGELINA CHARGE NURSE AND DR. PEREZ. PROCEDURE AND EVENT ENEDED AT 1445.
--- NOTE | 2019-10-12 15:36 | NUR ---
RN NOTES NEOSYNEPHRINE ON STANDBY. BP AT 117/73.
--- NOTE | 2019-10-12 17:52 | NUR ---
RN NOTES ACCUCHECK BS 323 MG/SL, 16 UNITS HUM R GIVEN PER SS.
[2019-10-12] MEDS: ACETAMINOPHEN 650 MG/20.3 ML UDC GT PRN ×2 (18:03→20:13)
--- NOTE | 2019-10-12 18:56 | NUR ---
RN NOTES PATIENT STABLE, STILL WITH FEVER DESPITE TYLENOL SUPPOSSITORY AND GT TYLENOL AND COOLING MEASURES. MD AWARE. TURNED AND REPOSITIONED. RESTRAINT RELEASED AND PULSES CHECKED Q 2HOURS. ALL NEEDS MET AT THIS TIME. WILL ENDORSE TO NEXT SHIFT FOR ISAIAS.
--- NOTE | 2019-10-12 19:10 | NUR ---
RN OPENING NOTES: Received pt sedated, w/ ETT tube at 6.5/19cm with mechanical ventilation. Tolerating settings well. No respiratory distress noted. On isolation for positive Covid. On tele monitor showing ST. R NGT w/ Glucerna running at 40cc/hr. Tolerating well. No residual noted. Has right femoral PICC w/ Diprivan running at 90mcg/hr and NS running at 40cc/hr. Has LAC #20 and L wrist #20. Lines patent and flushed. Dressings c/d/i. Stephen cath in place, draining yellow colored urine via gravity. Has ORCHID TRANSPLANTER restraints, released and circulation checked. Safety measures in place. Will continue to monitor.
[2019-10-12] MEDS ORDERED: MEROPENEM 1 G VIAL IV ONE (20:10)
[2019-10-12] MEDS: AZITHROMYCIN 250 MG TABLET PO SCH (20:11)
[2019-10-12] MEDS: MEROPENEM 1 G in IV NS 0.9% 100 ML IV SCH (20:12)
[2019-10-12] MEDS: GLUCERNA 1.2 1,000 ML BOTTLE NG PRN (20:15)
--- NOTE | 2019-10-12 20:15 | NUR ---
RN NOTE: Pt noted w/ temp of 101.6. Tylenol given per order and cooling measures in place. Will continue to monitor.
[2019-10-12] MEDS ORDERED: MEROPENEM 1 G in IV NS 0.9% 100 ML IV SCH (21:00)
[2019-10-13] VITALS (26 sets, daily range): BP systolic 26–171; BP diastolic 12–149
[2019-10-13] MEDS: BLOOD SUGAR DIAGNOSTIC 1 EACH STRIP IN SCH ×2 (00:16→05:33)
[2019-10-13] MEDS: INSULIN REGULAR, HUMAN 100 UNIT/ML 3 ML VIAL SQ PRN ×2 (00:17→06:41)
[2019-10-13] MEDS ORDERED: IV NS 0.9% 500 ML IV ONE ×2 (01:30→03:30)
--- NOTE | 2019-10-13 02:24 | NUR ---
RN NOTE: Pt temp still elevated at 101.6. Gave pt an ice bath, cooling measures still in place. Pt noted w/ low BP of 55/14. Fahad drip restarted at 0.5mcg/kg/min. Will titrate per protocol. Will continue to monitor.
[2019-10-13] MEDS: PROPOFOL 100 ML IV PRN (02:55)
[2019-10-13] MEDS: IV NS 0.9% 1,000 ML IV PRN (03:00)
[2019-10-13] MEDS ORDERED: LORAZEPAM INJ 2 MG/ML VIAL IV PRN (03:30)
[2019-10-13] MEDS ORDERED: VASOPRESSIN INJ 20 UNIT/ML VIAL ONE (04:50)
[2019-10-13] MEDS ORDERED: VASOPRESSIN INJ 20 UNIT in IV NS 0.9% 39 ML IV PRN (05:00)
--- NOTE | 2019-10-13 05:05 | NUR ---
RN NOTE: 0445: Pt found pulseless upon palpation and BP not reading. CN aware. Code blue called. See Code Blue report sheet. Dr. Tommy kapadia, gave orders for Vasopressin. Orders noted and carried out. Addendum: 10/13/19 at 0508 by EVANGELINA FARRELL RN [id number]: Pulse found
[2019-10-13] MEDS: MEROPENEM 1 G in IV NS 0.9% 100 ML IV SCH (05:10)
[2019-10-13 05:12] LABS: BASOPHILS % (AUTO) 0.1 % (0.0-2.0); EOSINOPHILS % (AUTO) 0.6 % (0.0-6.0); HEMATOCRIT 27 % (33-45); LYMPHOCYTES # (AUTO) 1.5 /CMM (0.8-4.8); LYMPHOCYTES % (AUTO) 6.7 % (20.0-44.0); MEAN CORPUSCULAR HGB CONC 33 g/dl (31.0-36.0); MEAN CORPUSCULAR VOLUME 89 fL (82-100); MONOCYTES # (AUTO) 0.4 /CMM (0.1-1.30); NEUTROPHILS # (AUTO) 20.2 /CMM (1.8-8.9); NEUTROPHILS % (AUTO) 90.6 % (43.0-81.0); PLATELET COUNT (AUTO) 160 /CMM (150-450); RED BLOOD CELL COUNT(AUTO) 3.09 MIL/uL (4.0-5.2); WHITE BLOOD COUNT (AUTO) 22.3 K/uL (4.3-11.0)
[2019-10-13] MEDS ORDERED: MEROPENEM 1 G VIAL IV ONE (05:12)
[2019-10-13 05:21] LABS: CREATININE 0.5 mg/dL (0.6-1.3); POTASSIUM 3.1 mmol/L (3.5-5.1)
--- NOTE | 2019-10-13 05:51 | NUR ---
RN NOTE: Pt maxed out on Fahad and Vasopressin and still unable to obtain Bp> Changed BP cuff location x3 and attempted manual BP x2 and still unable to obtain. Dr. Sanders paged and gave orders for Dopamine. Noted and carried out by CN. Will continue to monitor.
[2019-10-13] MEDS ORDERED: DOPamine 400 MG/D5W 250 ML RTU BAG IV ONE ×2 (06:00→07:30)
--- NOTE | 2019-10-13 06:00 | NUR ---
RN NOTE: Pt started on Dopamine drip @ 20mcg/min for low BP. Medication was scanned but not appearing in IV Spreadsheet to document.
[2019-10-13] MEDS ORDERED: VASOPRESSIN INJ 40 UNIT in IV NS 0.9% 38 ML IV PRN (06:30)
--- NOTE | 2019-10-13 07:10 | NUR ---
RN CLOSING NOTES: Pt resting in bed, intubated and sedated. On isolation for positive Covid. Tolerating mechanical vent settings well. ST on monitor. Pt was coded once during shift. Started on Fahad @ 1mcg and maxed out to 3mcg. Vasopressin at 0.04mcg and Dopamine at 10mcg. Pt unable to sustain BP WNL. Titrating pressors as ordered. On OGT feeding of Glucerna at 40cc/hr. Tolerating well. No residuals noted. IV access all patent and flushing. Dressings c/d/i. Alves cath patent and draining via gravity. All medications given as ordered. Safety measures in place. Endorsed to [facility] for ISAIAS.
[2019-10-13] MEDS ORDERED: DOPamine 400 MG/D5W 250 ML RTU BAG IV PRN (07:30)
[2019-10-13] MEDS ORDERED: DOPamine 400 MG in IV D5W 250 ML IV PRN (07:30)
--- NOTE | 2019-10-13 07:30 | NUR ---
curriculum specialist notes dopamine re ordered by ed charge nurse received , received @ 10mcg/kg/min , increased to 20mgc/kg/min maxed .
[2019-10-13] MEDS ORDERED: FEE EMEERGENCY 1 MIN EA MC ONE (07:46)
--- NOTE | 2019-10-13 08:00 | NUR ---
0715 - agricultural engineering teacher notes received patient unresponsive , gc3 of 3 , pupils fixed dilated , absent gag , coughing reflex , absent bowel sounds , intubated ett in place , vent settings as ordered spo2 unmeasurable , st 120 on bedside monitor , ng with glucerna @ 40ml/hr , noted with 50ml residuals , held , r femoral tlc with ns @ 40ml/hr , norsynephrine @ 3mcg/kg/min , vasopressin @ 0.04u/hr , and dopamine @ 10mcg/kg/min , infusing well , all needs attended , will continue to monitor . @0736 pt found pea on the monitor , code blue called , cpr started dr mcgee at bedside , notified regarding pt status and history , aware , c @0741 pronounced the pt , notified dr esquivel ,admitting and nursing supervisor [employer] that pt . 0800 called feliz to notified regarding pt status , sister aware , calm on the phone , discussed plan for mortuary , sister understand , ok to release body to mortuary . no belongings noted at pt room .
[2019-10-13] MEDS ORDERED: POTASSIUM CHLORIDE 20 MEQ POWDER PACKET GT SCH (09:30)
--- NOTE | 2019-10-13 09:30 | NUR ---
MANAGER AIR NOTES TRANSFERRED [facility] B[place] [facility] [place] ID BAND IN PLACE , TAGS PLACED WITH PT IDENTIFICATIONS , PT HAS NO BELONGINGS , ACCOMPANIED BY 2 SECURITY PERSONNEL
[2019-10-13] MEDS ORDERED: MEROPENEM 1 G in IV NS 0.9% 100 ML IV SCH (13:00)
[2019-10-13] MEDS ORDERED: EPINEPHRINE (1:1000) 1 MG/ML AMPUL SUBCUT ONE (13:22)
[2019-10-13] MEDS ORDERED: EPINEPHRINE (1:10,000) SYRINGE 1 MG/10 ML DISP.SYRIN IVP ONE (13:22)
== END 2019-10-13 07:41 | disposition expired | DRG 870 ==
LOC: ER 22:33 → ICU 10-09 01:16
PROVIDERS: ADMIT Nurse Practitioner Acute Care; ATTEND Internal Medicine
PROC: 0BH17EZ Insertion of Endotracheal Airway into Trachea, Via Natural or Artificial Opening (ICD-10-PCS; principal; 2019-10-09)
PROC: 5A1955Z Respiratory Ventilation, Greater than 96 Consecutive Hours (ICD-10-PCS; 2019-10-09)
PROC: 06H033Z Insertion of Infusion Device into Inferior Vena Cava, Percutaneous Approach (ICD-10-PCS; 2019-10-10)
PROC: B549ZZA Ultrasonography of Inferior Vena Cava, Guidance (ICD-10-PCS; 2019-10-10)
PROC: 0BH17EZ Insertion of Endotracheal Airway into Trachea, Via Natural or Artificial Opening (ICD-10-PCS; 2019-10-12)
PROC: 5A12012 Performance of Cardiac Output, Single, Manual (ICD-10-PCS; 2019-10-13)
DX: A41.89 Other specified sepsis (principal); R65.21 Severe sepsis with septic shock; E43 Unspecified severe protein-calorie malnutrition; G93.41 Metabolic encephalopathy; J96.01 Acute respiratory failure with hypoxia; U07.1 COVID-19; J12.89 Other viral pneumonia; N17.0 Acute kidney failure with tubular necrosis; E11.52 Type 2 diabetes mellitus with diabetic peripheral angiopathy with gangrene; I96 Gangrene, not elsewhere classified; M86.8X7 Other osteomyelitis, ankle and foot; D64.9 Anemia, unspecified; E88.09 Other disorders of plasma-protein metabolism, not elsewhere classified; Z68.27 Body mass index [BMI] 27.0-27.9, adult; L89.626 Pressure-induced deep tissue damage of left heel; L89.616 Pressure-induced deep tissue damage of right heel; E11.69 Type 2 diabetes mellitus with other specified complication; E87.5 Hyperkalemia; E83.39 Other disorders of phosphorus metabolism; E11.40 Type 2 diabetes mellitus with diabetic neuropathy, unspecified
CPT/HCPCS: 31720; 36415; 36600; 71045-TC; 80048-TC; 80053-TC; 80061-TC; 80076-TC; 80202-TC; 81000-TC; 82533; 82550-TC; 82728-TC; 82803-TC; 82962-TC; 83540-TC; 83605-TC; 83615-TC; 83735-TC; 83880; 84100-TC; 84146; 84155; 84165; 84439-TC; 84443-TC; 84484-TC; 85025-TC; 85378-TC; 85730-TC; 86140-TC; 86480; 87040-TC; 87081-TC; 87086-TC; 94002-TC; 94003-TC; 99082-TC; C1751; C9113; G0378; J0171; J0330; J0456; J0692; J1200; J1265; J1815; J2060; J2185; J2250; J2370; J2543; J2920; J3262; J3370; J3480; J3490; J7030; J7040; J7050; J7060